=== PATIENT | male | born 1955 | race Caucasian/White ===

== ENCOUNTER → 2017-04-09 | Outpatient (CLI) | payer OTHER ==
[~2017-04-09] MED LIST: ASPIR 8181 MG PO; ASPIRIN81 MG PO; CEFTIN500 MG PO; DITROPAN XL10 MG PO; LOPRESSOR25 MG PO; METOPROLOL SUCC25 MG PO; SIMVASTATIN10 MG PO; TYLENOL WITH C1 EACH PO
--- NOTE | 2017-04-09 17:37 | Diagnostic Imaging Report ---
PROCEDURE:X-RAY ABDOMEN - KUB COMPARISON:Abdomen x-ray 12/13/15 INDICATIONS:CALCULI OF KIDNEY FINDINGS: BOWEL GAS PATTERN:Non-specific bowel gas pattern. No dilated bowel loops. CALCIFICATIONS:No calcifications over the renal shadows or along the expected course of the ureters. OTHER:No organomegaly. Lung bases are clear. Mild degenerative changes of the spine are stable. CONCLUSION: No evidence of renal calculus by x-ray. Dictated by: Kait Ivye M.D. on 04/09/2017 at 17:37 Electronically approved by: Kait Ivey M.D. on 04/09/2017 at 17:37
== END ==
LOC: RAD 16:32
PROVIDERS: ATTEND Urology
DX: N20.0 Calculus of kidney (principal)
CPT/HCPCS: 74018

== ENCOUNTER → 2017-08-21 | Outpatient (CLI) | payer OTHER ==
--- NOTE | 2017-08-21 17:05 | Diagnostic Imaging Report ---
PROCEDURE:X-RAY ABDOMEN - KUB COMPARISON:Patients [facility], DX, ABDOMEN-1VIEW (KUB), 12/13/2015, 9:48. Patients [facility], DX, ABDOMEN-1VIEW (KUB), 04/09/2017, 17:03. CT, CT ABDOMEN/PELVIS WO, 10/12/2014, 4:26. INDICATIONS:FOLLOW UP CALCULUS OF KIDNEY FINDINGS: There is a non-obstructed bowel-gas pattern. No calcifications project over the renal shadows, expected course of the ureters or bladder. No acute bony abnormalities. Lung bases are clear. Vascular calcifications. CONCLUSION: No radiopaque densities project over the genitourinary system. Liborio Manzano M.D. Dictated by: Liborio Manzano M.D. on 08/21/2017 at 17:09 Electronically approved by: Liborio Manzano M.D. on 08/21/2017 at 17:09
== END ==
LOC: RAD 15:41
PROVIDERS: ATTEND Urology
DX: N20.0 Calculus of kidney (principal)
CPT/HCPCS: 74018

== ENCOUNTER → 2018-01-20 | Outpatient (CLI) | payer OTHER ==
--- NOTE | 2018-01-20 14:12 | Diagnostic Imaging Report ---
Exam: Abdominal film Clinical History: Renal stent Comparison: 08/22/2027 DISCUSSION: No suspicious calcifications project over the renal shadows or expected ureteral courses. Bowel gas pattern is nonobstructive. No mass effect or organomegaly. Regional skeletal structures are intact. Irregularity along the left greater trochanter is incompletely visualized though likely degenerative in nature. IMPRESSION: No plain film evidence of urolithiasis. Signed by: Dr. Dayday Monroy M.D. on 01/20/2018 2:08 PM
== END ==
LOC: RAD 13:21
PROVIDERS: ATTEND Urology
DX: N20.0 Calculus of kidney (principal)
CPT/HCPCS: 74018

== ENCOUNTER → 2018-06-11 | Outpatient (CLI) | payer OTHER ==
--- NOTE | 2018-06-11 15:02 | Diagnostic Imaging Report ---
Exam: KUB - 2 views Clinical History: Renal calculus. Comparison: KUB 01/20/2018. Findings: Nonobstructive bowel gas pattern. No evidence of free intraperitoneal air. Bowel gas partially obscures evaluation of the upper kidneys. No evidence of abnormal calcification. No acute bony abnormality. Impression: No radiographic evidence of urolithiasis. Signed by: Dr. Jc Teixeira MD on 06/11/2018 2:58 PM
== END ==
LOC: RAD 13:49
PROVIDERS: ATTEND Urology
DX: N20.0 Calculus of kidney (principal)
CPT/HCPCS: 74018

== ENCOUNTER → 2018-12-22 | Outpatient (CLI) | payer OTHER ==
--- NOTE | 2018-12-22 13:16 | Diagnostic Imaging Report ---
Exam: KUB - 2 views Indication: Renal calculus Comparison: Multiple prior KUBs, most recently 06/11/2018 Findings: No radiographically apparent renal calculi. Nonobstructive bowel gas pattern. No free air. Mild degenerative changes of the spine and both hip joints. Partially visualized lung bases appear clear. Impression: No radiographically apparent renal calculi. Signed by: Debbi Zaman MD on 12/22/2018 1:12 PM
== END ==
LOC: RAD 12:32
PROVIDERS: ATTEND Urology
DX: N20.0 Calculus of kidney (principal)
CPT/HCPCS: 74018

== ENCOUNTER → 2020-03-16 | Outpatient (CLI) | payer OTHER | LOC: RAD 13:54 | PROVIDERS: ATTEND Urology | DX: N20.0 Calculus of kidney (principal) | CPT/HCPCS: 74018 ==